=== PATIENT | male | born 1985 | race African-American/Black ===

== ENCOUNTER 2023-09-06 14:46 | Emergency (ER) | payer OTHER ==
[~2023-09-06] VITALS: Ht 190.5 cm; Wt 83.9 kg
[2023-09-06 14:53] VITALS: BP_SYST 101; PULSE 96; RESP 18; TEMP 97.6; O2SAT 96
[2023-09-06] MEDS ORDERED: LIDOCAINE 1%, 20 ML MDV 20 ML ONE (15:08)
[2023-09-06] MEDS ORDERED: AUG875 PO (15:24)
[2023-09-06 15:41] VITALS: BP_SYST 101; PULSE 96; RESP 18; TEMP 97.6; O2SAT 96
== END 2023-09-06 15:39 | disposition home or self-care (01) ==
LOC: SED 14:46
DX: S01.511A Laceration without foreign body of lip, initial encounter (principal); W51.XXXA Accidental striking against or bumped into by another person, initial encounter; Y93.67 Activity, basketball; Y92.39 Other specified sports and athletic area as the place of occurrence of the external cause; Y99.8 Other external cause status
CPT/HCPCS: 99283; J2001